=== PATIENT | male | born 1970 | race Caucasian/White ===

== ENCOUNTER 2019-08-13 09:15 | Emergency (ER) | payer BC ==
[2019-08-13 09:26] VITALS: BP 154/87
--- NOTE | 2019-08-13 09:54 | UC ---
Cardiac HPI - HPI Summary HPI Summary: 49-year-old male comes in with a chief complaint of epigastric pain chest pain and left shoulder pain. Pain woke him up at about 11 PM last evening. He's had the pain ever since. He did feel sweaty at one time. No complaint of any shortness of breath. Describes it as a burning pain. At its worse it's a 10 out of 10. Right now is about an 8 out of 10. He had a similar episode about a month ago that got better when he sat up and took antacid medicines. This time he did sit up and he took an antacid medicine but is not helping with the symptoms. Patient does have high blood pressure. Virtually anything makes the pain worse. - History of Current Complaint Chief Complaint: UCGI Stated Complaint: ABDOMINAL PAIN HEARTBURN Time Seen by Provider: 08/13/19 09:35 Pain Intensity: 8 - Allergy/Home Medications Allergies/Adverse Reactions: Allergies Allergy/AdvReac Type Severity Reaction Status Date / Time No Known Allergies Allergy Verified 08/13/19 09:34 Home Medications: Home Medications NK [No Home Medications Reported] 08/13/19 [History Confirmed 08/13/19] PMH/Surg Hx/FS Hx/Imm Hx Previously Healthy: Yes Cardiovascular History: Hypertension - Surgical History Surgical History: None - Family History Known Family History: Positive: Non-Contributory - Social History Alcohol Use: None Substance Use Type: None Smoking Status (MU): Current Some Day Smoker Review of Systems All Other Systems Reviewed And Are Negative: Yes Constitutional: Positive: Other - see hpi Skin: Positive: Negative Eyes: Positive: Negative ENT: Positive: Negative Respiratory: Positive: Negative Cardiovascular: Positive: Chest Pain Gastrointestinal: Positive: Abdominal Pain Motor: Positive: Negative Neurovascular: Positive: Negative Musculoskeletal: Positive: Negative Neurological: Positive: Negative Psychological: Positive: Negative Is Patient Immunocompromised?: No Physical Exam Triage Information Reviewed: Yes Appearance: Well-Appearing, No Pain Distress, Well-Nourished Vital Signs: Initial Vital Signs Temp 97.0 F 08/13/19 09:23 Pulse 64 08/13/19 09:23 Resp 20 08/13/19 09:23 BP 154/87 08/13/19 09:23 Pulse Ox 98 08/13/19 09:23 Vital Signs Reviewed: Yes Eye Exam: Normal Eyes: Positive: Conjunctiva Clear Neck: Positive: Supple Respiratory: Positive: Lungs clear, Normal breath sounds, No respiratory distress Cardiovascular: Positive: RRR Abdomen Description: Positive: Other: - Patient's mildly tender to palpation in the epigastrium. Bowel Sounds: Positive: Present Musculoskeletal: Positive: Strength Intact, ROM Intact, No Edema - No calf tenderness. Neurological: Positive: Alert, Muscle Tone Normal Psychological: Positive: Age Appropriate Behavior Skin Exam: Normal Diagnostics - EKG Cardiac Rate: Bradycardia - at 0929 Cardiac Rhythm: Sinus: Normal Ectopy: None ST Segment: Other EKG Comparison: Other - Sinus bradycardia 57 beats per minute minutes, no ectopy , there is slight ST depression in V4 and V5. No old EKGs to compare. - Assessment/Plan Course Of Treatment: I discussed the patient's symptoms and the EKG with the patient. There is some ST depression in V4 and V5. I recommended further evaluation in the emergency department. Patient prefers to go by POV. - Clinical Impression Provider Diagnosis: Chest pain, Epigastric abdominal pain Discharge ED - Sign-Out/Discharge Documenting (check all that apply): Patient Departure All imaging exams completed and their final reports reviewed: No Studies - Discharge Plan Condition: Stable Disposition: HOME-RECOMMEND TO ED Patient Education Materials: Chest Pain (ED), Epigastric Pain (ED) Referrals: Zechariah Vega MD [Primary Care Provider] - Additional Instructions: GO DIRECTLY TO THE EMERGENCY DEPARTMENT FOR FURTHER EVALUATION. - Billing Disposition and Condition Condition: STABLE Disposition: Home-Recommend to ED
== END 2019-08-13 09:58 | disposition home health service (06) ==
LOC: UCEAST 09:15
DX: R07.9 Chest pain, unspecified (principal); R10.13 Epigastric pain; R00.1 Bradycardia, unspecified; I10 Essential (primary) hypertension; F17.200 Nicotine dependence, unspecified, uncomplicated
CPT/HCPCS: 93005; 99202; G0463

== ENCOUNTER 2019-08-13 10:16 | Inpatient (IN) | payer BC ==
[2019-08-13 11:00] LABS: ABS Basophils 0.1 10^3/ul (0-0.2); ABS Lymphocytes 1.1 10^3/ul (1.0-4.8); ABS Monocytes 0.8 10^3/ul (0-0.8); ABS Neutrophils 11.9 10^3/ul (1.5-7.7); Eosinophil % 0.3 %; Hematocrit 41 % (42-52); Hemoglobin 13.7 g/dL (14.0-18.0); Lymphocyte % 7.7 %; Mean Corpuscular HGB Conc 33 g/dL (31-36); Mean Corpuscular Hemoglobin 28 pg (27-31); Mean Corpuscular Volume 82 fL (80-94); Mean Platelet Volume 7.3 fL (7.4-10.4); Platelet Count 282 10^3/uL (150-450); Red Blood Count 4.98 10^6 /uL (4.18-5.48); Red Cell Distribution Width 15 % (10-15); White Blood Count 13.9 10^3/uL (3.5-10.8)
[2019-08-13 11:11] LABS: INR 1.24 (0.82-1.09)
[2019-08-13 11:16] LABS: ALT 16 U/L (7-52); AST 14 U/L (13-39); Albumin 4.8 g/dL (3.2-5.2); Albumin/Globulin Ratio 1.7 (1-3); Alkaline Phosphatase 109 U/L (34-104); Anion Gap 8 mmol/L (2-11); BUN/Creatinine Ratio 8.2 (8-20); Blood Urea Nitrogen 8 mg/dL (6-24); CO2 Carbon Dioxide 27 mmol/L (22-32); Calcium 9.6 mg/dL (8.6-10.3); Chloride 104 mmol/L (101-111); EGFR African American 98.7 (>60); EGFR Non-African American 81.6 (>60); Globulin 2.8 g/dL (2-4); Glucose 105 mg/dL (70-100); Potassium 3.9 mmol/L (3.5-5.0); Sodium 139 mmol/L (135-145); Total Protein 7.6 g/dL (6.4-8.9)
[2019-08-13 11:20] LABS: Troponin I 0.07 ng/mL (<0.03)
[2019-08-13] MEDS ORDERED: NS 0.9% 1000 ML** 1,000 ML IV ONE (11:21)
[2019-08-13] MEDS ORDERED: Lidocaine 2% VISCOUS* 15 ML UDC PO ONE (11:23)
[2019-08-13] MEDS ORDERED: Al Hydrox/Mg Hydrox/Simet LIQ* 30 ML UDC PO ONE ×2 (11:23→17:04)
--- NOTE | 2019-08-13 11:25 | ED ---
HPI Chest Pain - HPI Summary HPI Summary: Patient is a 49 y/o M presenting to the ED for a chief complaint of diffuse non- radiating chest pain that began around 23:00 on 08/12/19. Patient describes that his symptoms continued into work on 08/13/19. He also notes nausea and vomiting that is described as bile. The chest pain is described as a burning sensation. He believes he may have heartburn. Patient denies abdominal pain, diarrhea, shortness of breath, chest pain with exertion, fever, cold symptoms, hematochezia, bilateral LE pain or edema, or groin pain. Any recent illness is denied. One month ago, patient had similar symptoms that began while sleeping. Any PMHx of DM, GERD, cardiac problems, or ulcers is denied. He does admit a history of HTN for which he does not take medications. PSHx of cardiac stent placement is denied. Patient admits tobacco use, but denies alcohol use. He denies taking any Motrin, aspirin, or antacid. Allergy to Advil noted. - History of Current Complaint Chief Complaint: EDChestPainROMI Hx Obtained From: Patient Onset/Duration: Atraumatic, Still Present Timing: Constant Initial Severity: Severe Current Severity: Severe Pain Intensity: 8 Pain Scale Used: 0-10 Numeric Chest Pain Location: Diffuse Chest Pain Radiates: No Character: Burning Aggravating Factor(s): Nothing Alleviating Factor(s): Nothing Associated Signs and Symptoms: Positive: Chest Pain, Nausea, Vomiting. Negative : Shortness of Breath, Fever, Abdominal Pain, Edema - Bilateral LE - Allergy/Home Medications Allergies/Adverse Reactions: Allergies Allergy/AdvReac Type Severity Reaction Status Date / Time ibuprofen [From Advil] Allergy Itching Verified 08/13/19 10:32 naproxen [From Aleve] Allergy Itching Verified 08/13/19 10:32 PMH/Surg Hx/FS Hx/Imm Hx Previously Healthy: Yes Endocrine/Hematology History: Denies: Hx Diabetes Cardiovascular History: Reports: Hx Hypertension Sensory History: Denies: Hx Legally Blind, Hx Deafness Opthamlomology History: Denies: Hx Legally Blind EENT History: Denies: Hx Deafness - Surgical History Surgical History: None Surgery Procedure, Year, and Place: None Infectious Disease History: No Infectious Disease History: Denies: Traveled Outside the [place] in Last 30 Days - Family History Known Family History: Negative: Diabetes - Social History Occupation: Employed Full-time Lives: With Family Alcohol Use: None Hx Substance Use: No Substance Use Type: Reports: None Hx Tobacco Use: Yes Smoking Status (MU): Current Some Day Smoker Review of Systems Negative: Fever Positive: Chest Pain - Diffuse Negative: Shortness Of Breath Positive: Vomiting, Nausea. Negative: Abdominal Pain, Diarrhea, Other - Negative hematochezia Negative: pain - Groin Negative: Myalgia - Bilateral LE, Edema - Bilateral LE All Other Systems Reviewed And Are Negative: Yes Physical Exam - Summary Physical Exam Summary: Constitutional: Well-developed, Well-nourished, Alert. (-) Distressed Skin: Warm, Dry HENT: Normocephalic; Atraumatic Eyes: Conjunctiva normal Neck: Musculoskeletal ROM normal neck. (-) JVD, (-) Stridor, (-) Tracheal deviation Cardio: Rhythm regular, rate normal, Heart sounds normal; Intact distal pulses; The pedal pulses are 2+ and symmetric. Radial pulses are 2+ and symmetric. (-) Murmur Pulmonary/Chest wall: Effort normal. (-) Respiratory distress, (-) Wheezes, (-) Rales Abd: Soft, (-) Distension, (-) Guarding, (-) Rebound. Epigastric tenderness. Musculoskeletal: (-) Edema Lymph: (-) Cervical adenopathy Neuro: Alert, Oriented x3 Psych: Mood and affect Normal Triage Information Reviewed: Yes Vital Signs On Initial Exam: Initial Vitals Temp Pulse Resp BP Pulse Ox 97.5 F 69 20 169/102 98 08/13/19 10:29 08/13/19 10:29 08/13/19 10:29 08/13/19 10:29 08/13/19 10:29 Vital Signs Reviewed: Yes Procedures - Sedation Patient Received Moderate/Deep Sedation with Procedure: No Diagnostics - Vital Signs Vital Signs Temp Pulse Resp BP Pulse Ox 08/13/19 10:29 97.5 F 69 20 169/102 98 - Laboratory Lab Results: Lab Results 08/13/19 08/13/19 08/13/19 Range/Units 10:40 10:40 10:40 WBC 13.9 H (3.5-10.8) 10^3/uL RBC 4.98 (4.18-5.48) 10^6 /uL Hgb 13.7 L (14.0-18.0) g/dL Hct 41 L (42-52) % MCV 82 (80-94) fL MCH 28 (27-31) pg MCHC 33 (31-36) g/dL RDW 15 (10-15) % Plt Count 282 (150-450) 10^3/uL MPV 7.3 L (7.4-10.4) fL Neut % (Auto) 85.9 % Lymph % (Auto) 7.7 % Sac % (Auto) 5.6 % Eos % (Auto) 0.3 % Baso % (Auto) 0.5 % Absolute Neuts (auto) 11.9 H (1.5-7.7) 10^3/ul Absolute Lymphs (auto) 1.1 (1.0-4.8) 10^3/ul Absolute Monos (auto) 0.8 (0-0.8) 10^3/ul Absolute Eos (auto) 0.0 (0-0.6) 10^3/ul Absolute Basos (auto) 0.1 (0-0.2) 10^3/ul Absolute Nucleated RBC 0.0 10^3/ul Nucleated RBC % 0.0 INR (Anticoag Therapy) 1.24 H (0.82-1.09) Sodium 139 (135-145) mmol/L Potassium 3.9 (3.5-5.0) mmol/L Chloride 104 (101-111) mmol/L Carbon Dioxide 27 (22-32) mmol/L Anion Gap 8 (2-11) mmol/L BUN 8 (6-24) mg/dL Creatinine 0.97 (0.67-1.17) mg/dL Est GFR ( Amer) 98.7 (>60) Est GFR (Non-Af Amer) 81.6 (>60) BUN/Creatinine Ratio 8.2 (8-20) Glucose 105 H (70-100) mg/dL Calcium 9.6 (8.6-10.3) mg/dL Total Bilirubin 0.30 (0.2-1.0) mg/dL AST 14 (13-39) U/L ALT 16 (7-52) U/L Alkaline Phosphatase 109 H (34-104) U/L Troponin I 0.07 H* (<0.03) ng/mL Total Protein 7.6 (6.4-8.9) g/dL Albumin 4.8 (3.2-5.2) g/dL Globulin 2.8 (2-4) g/dL Albumin/Globulin Ratio 1.7 (1-3) Result Diagrams: 08/13/19 10:40 08/13/19 10:40 Lab Statement: Any lab studies that have been ordered have been reviewed, and results considered in the medical decision making process. - Radiology Chest X-ray Radiology Interpretation Completed By: Radiologist Summary of Radiographic Findings: Chest X-ray IMPRESSION: No acute cardiopulmonary process by radiograph. Reviewed by Dr. Buchanan. - EKG 10:18 Cardiac Rate: NL - 70 BPM EKG Rhythm: Sinus Rhythm ST Segment: Normal Ectopy: None Summary of EKG Findings: EKG at 10:18 shows normal sinus rhythm with 70 BPM, no ischemic changes. Dr. Buchanan has reviewed and interpreted this EKG. Chest Pain Course/Dx - Course Course Of Treatment: Patient is a 49 y/o M presenting to the ED for a chief complaint of diffuse non-radiating chest pain that began around 23:00 on . Patient describes that his symptoms continued into work on 08/13/19. He also notes nausea and vomiting that is described as bile. The chest pain is described as a burning sensation. He believes he may have heartburn. Patient denies abdominal pain, diarrhea, shortness of breath, chest pain with exertion, fever, cold symptoms, hematochezia, bilateral LE pain or edema, or groin pain. Any recent illness is denied. One month ago, patient had similar symptoms that began while sleeping. Any PMHx of DM, GERD, cardiac problems, or ulcers is denied. He does admit a history of HTN for which he does not take medications. PSHx of cardiac stent placement is denied. Patient admits tobacco use, but denies alcohol use. He denies taking any Motrin, aspirin, or antacid. Allergy to Advil noted. On exam, soft, non-distended abdomen, epigastric tenderness. In the ED course, patient was given Maalox 30 ml PO, lidocaine 15 ml PO, and IV fluids. Laboratory abnormal findings: WBC 13.9, Hgb 13.7, Hct 41, MPV 7.3, absolute neuts 11.9, INR 1.24, glucose 105, alkaline phosphatase 109, troponin I 0.07. EKG at 10:18 shows normal sinus rhythm with 70 BPM, no ischemic changes. Chest X-ray IMPRESSION: No acute cardiopulmonary process by radiograph. At 11:34, I discussed with Dr. Annika Francis for who agrees to admit the patient to [facility] [place]. I also consulted with Dr. Holden Ho who recommended admission. Patient will be admitted to [facility] [place] with a diagnosis of chest pain and elevated troponin. - Diagnoses Provider Diagnoses: Chest pain, Elevated troponin - Provider Notifications Discussed Care Of Patient With: Annika Francis - At 11:34, I discussed with Dr. Annika Francis for who agrees to admit the patient to [facility] [place]. I also consulted with Dr. Holden Ho who recommended admission. Time Discussed With Above Provider: 11:34 Instructed by Provider To: Admit As Inpatient Discharge ED - Sign-Out/Discharge Documenting (check all that apply): Patient Departure - Admit - Discharge Plan Condition: Stable Disposition: ADMITTED TO [facility] - Billing Disposition and Condition Condition: STABLE Disposition: Admitted to [facility] - Attestation Statements Document Initiated by Allyibe: Yes Documenting Scribe: Lorraine Alvarez Provider For Whom Scribe is Documenting (Include Credential): Harish Buchanan DO [facility] Attestation: Lorraine Bowers scribed for Harish Buchanan DO on 08/13/19 at 1417. Scribe Documentation Reviewed: Yes Provider Attestation: The documentation as recorded by the Lorraine lira accurately reflects the service I personally performed and the decisions made by me, Harish Buchanan DO Status of [facility] Document: Viewed
[2019-08-13] MEDS ORDERED: Aspirin 81 mg CHEW TAB* 81 MG TAB.CHEW PO ONE (11:31)
[2019-08-13] MEDS ORDERED: Nitroglycerin TAB 0.4 MG* 0.4 MG TAB SL ONE (11:32)
[2019-08-13] MEDS ORDERED: Morphine INJ* 2 MG/ML 1 ML SYRINGE (TWO MG - NEW SYRINGE VERSION) IV PRN (12:29)
[2019-08-13] MEDS ORDERED: Heparin DRIP 25,000 UNITS(*) 25,000 UNITS/500 ML BAG IV SCH (12:30)
[2019-08-13] MEDS ORDERED: Metoprolol Tartrate IV* 1 MG/ML 5 ML VIAL IV ONE ×2 (12:30→16:58)
[2019-08-13] MEDS ORDERED: Acetaminophen TAB* 325 MG PO PRN (12:32)
[2019-08-13] MEDS ORDERED: amLODIPine TAB* 5 MG PO ONE ×2 (12:41→16:57)
[2019-08-13] MEDS ORDERED: Nitro 2% OINT* (Nitroglycerin) 1 INCH/PAK PAK TOPICAL ONE (12:41)
[2019-08-13] MEDS ORDERED: NS 0.9% 1000 ML** 1,000 ML IV SCH (12:45)
[2019-08-13 13:04] LABS: C Reactive Protein 2.36 mg/L (<8.01)
[2019-08-13] MEDS ORDERED: Perflutren Lipid Microsphere* 3 ML VIAL ONE (13:13)
[2019-08-13 13:15] LABS: Cholesterol 135 mg/dL; Creatine Kinase 110 U/L (10-223); HDL Cholesterol 46.9 mg/dL; LDL Cholesterol 69 mg/dL; Triglycerides 95 mg/dL
[2019-08-13 13:20] LABS: CKMB ng/mL 2.3 ng/mL (0.6-6.3)
[2019-08-13 13:57] LABS: Erythrocyte Sed Rate 3 mm/Hr (0-19)
--- NOTE | 2019-08-13 13:59 | ECHO ---
*[facility]* [place] [address] Fax #: [phone] Transthoracic Echocardiogram Patient: Nguyễn Gupta : 1970 Study Date: 08/13/2019 Age: 49 Gender: M HR: 51 bpm Height: 71 in /180.3 cm BSA: 1.94 m^2 Weight: 164.7 lb /74.8 kg BMI: 23 kg/m^2 *Metal Reed Tuner: Lorraine Case [facility] *Referring Physician: * Holden Ho MD *Reading Physician: * Holden Ho MD Indications: Chest Pain, unspecified. History: Risk factors: Current tobacco use. Hypertension. Conclusions Summary: - Left ventricle: Systolic function is normal. The estimated ejection fraction is 60-65%. - Right ventricle: The cavity size is normal. Wall thickness is mildly increased. - Mitral valve: There is trace regurgitation. Study data: Transthoracic echocardiogram. Procedure: Transthoracic echocardiography was performed. Image quality was suboptimal. Intravenous Definity , 2 mlswas administered. Complete 2D, spectral Doppler, and color flow Doppler. Location: Emergency department. Patient status: Inpatient. Patient room number: 9. No prior study is available for comparison. Rhythm: Bradycardia. Findings Left ventricle: The cavity size is trivially reduced. Wall thickness is normal. Systolic function is normal. The estimated ejection fraction is 60-65%. Wall motion is normal; there are no regional wall motion abnormalities. Left ventricular diastolic function parameters are normal. Right ventricle: The cavity size is normal. Wall thickness is mildly increased. Systolic function is normal. Left atrium: The atrium is normal in size. Right atrium: The atrium is normal in size. Mitral valve: The leaflets are normal thickness. There is no evidence of stenosis. There is trace regurgitation. Aortic valve: The valve is trileaflet. The leaflets are normal thickness. There is no evidence of stenosis. There is no significant regurgitation. Tricuspid valve: The leaflets are normal thickness. There is no evidence of stenosis. Pulmonic valve: Not well visualized. There is no significant regurgitation. Aorta: The aortic root appears normal. The aortic arch appears normal. Pericardium: There is no significant pericardial effusion. Pulmonary arteries: Systolic pressure can not be accurately estimated. Systemic veins: Inferior vena cava: The vessel is normal in size. There is (>= 50%) respiratory change in the IVC dimension. Measurements Left ventricle Value Ref Aortic valve Value Ref BO, LAX (L) 3.7 cm 4.2 - 5.8 Rosi diam, ED 2.0 cm ---- ESD, LAX 2.8 cm 2.5 - 4.0 Peak v, S 1.49 m/sec ---- FS, LAX 25 % 25 - 43 VTI, S 30.0 cm ---- PW, ED, LAX 1.0 cm 0.6 - 1.0 Mean grad, S 4.0 mm Hg ---- E', lat rosi, TDI 16.6 cm/sec >=10.0 Peak grad, S 9.0 mm Hg - --- E/e', lat rosi, 5 TDI Mitral valve Value Ref E', med rosi, TDI 10.7 cm/sec >=7.0 Peak E 0.81 m/sec - --- E/e', med rosi, 8 Peak A 0.45 m/sec ---- TDI Decel time 187 ms ---- E', avg, TDI 13.7 cm/sec Peak grad, D 2.6 mm Hg ---- E/e', avg, TDI 6 <=14 Peak E/A ratio 1.8 - --- LVOT Value Ref Pulmonic valve Value Ref Peak dominic, S 1.43 m/sec Peak v, S 0.51 m/sec ---- Peak grad, S 8 mm Hg Peak grad, S 1.0 mm Hg ---- Mean grad, S 3 mm Hg Aortic root Value Ref Ventricular septum Value Ref Root diam 3.0 cm <4.1 IVS, ED 1.0 cm 0.6 - 1.0 Root max diam, ED 3.0 cm <4.1 Right ventricle Value Ref Aortic arch Value Ref AW thickness, ED (H) 0.8 cm 0.1 - 0.5 Arch diam 2.8 cm ---- BO, LAX 2.7 cm BO minor ax, A4C 2.7 cm 1.9 - 3.5 Decending aorta Value Ref mid Martita peak dominic 1.22 m/sec ---- Left atrium Value Ref Inferior vena cava Value Ref AP dim, ES (L) 2.30 cm 3.00 - Diam 2.1 cm ---- 4.00 ML dim, A4C 3.4 cm Pulmonary veins Value Ref SI dim, A4C 5.2 cm Peak v, S 0.7 m/sec ---- Vol/bsa, ES, 1-p 22 ml/m^2 12 - 37 Peak v, D 0.52 m/sec ---- A4C Peak S/D ratio 1.3 ---- A rev duration 119 ms ---- Right atrium Value Ref SI dim, ES 4.2 cm 3.4 - 5.3 ML dim, ES, A4C 3.4 cm 2.6 - 4.4 Estimated RAP 8 mm Hg Legend: (L) and (H) ana paula values outside specified reference range. Prepared and electronically signed by Holden Ho MD 08/13/2019 13:58
[2019-08-13] MEDS: Heparin VIAL(*) 5000 UNITS/ML VIAL (FIVE THOUSAND) IV SCH ×2 (14:00→20:46)
[2019-08-13 14:24] LABS: Troponin I 0.09 ng/mL (<0.03)
--- NOTE | 2019-08-13 14:25 | HP ---
CC: Dr. Vega; Dr. Ho * HISTORY AND PHYSICAL: DATE OF ADMISSION: 08/13/19 PRIMARY CARE PROVIDER: Dr. Vega. CHIEF COMPLAINT: Chest pain. HISTORY OF PRESENT ILLNESS: Nguyễn Gupta is a 49-year-old male with no significant past medical history, who presented to the hospital complaining of indigestion. The patient stated that he had 1 episode of indigestion a month ago. At that point, his gave him Mylanta and it helped. He also at that point threw up and was covered in sweat. For the past month, he has been doing rather okay. 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 He has not had any more indigestion until today, actually in the middle of the night when he woke up with substernal burning. Currently, the discomfort is at 8/10 intensity. He denies any sweats or shortness of breath, but he complains of nausea. He also feels that the symptoms are worse when he is lying flat, but otherwise the pain is not pleuritic. He still continues have a problem. His troponin was 0.07 and he is going to be admitted with a diagnosis of likely unstable angina. PAST MEDICAL HISTORY: None. PAST SURGICAL HISTORY: None. MEDICATIONS: Medications at home, none. ALLERGIES: IBUPROFEN and NAPROXEN. FAMILY HISTORY: Positive for mother who in her 60s of lung cancer and father unknown. SOCIAL HISTORY: The patient has history of smoking a pack and half a day for approximately 10 or 15 years, then the remaining 15 years he had been smoking 10 cigarettes a day. He started smoking when he was in his early teens and he continues to do so up to 10 cigarettes a day. He denies any alcohol or drug use. He is a lead software tester at [employer] and his , Annmarie, is his surrogate. REVIEW OF SYSTEMS: Please see history of present illness. All the remaining 12 systems were reviewed with the patient and were otherwise negative. PHYSICAL EXAMINATION GENERAL: The patient is is a very pleasant 49-year-old male who is in no acute distress. Alert, awake and oriented x3. VITAL SIGNS: Blood pressure 169/102, heart rate of 69 and regular, respiratory rate 20, oxygen saturation 98% on room air, temperature 97.5. HEENT: Head is atraumatic, normocephalic. Eyes: Pupils are equal and reactive to light and accommodation. Oropharynx clear. Mucosa moist. NECK: Supple. No JVD. No bruits bilaterally. RESPIRATORY: Clear to auscultation bilaterally. CARDIOVASCULAR: Regular rate and rhythm. No murmur. ABDOMEN: Soft, minimally tender in right upper quadrant with no rebound and no guarding. Bowel sounds are present in all 4 quadrants. EXTREMITIES: There is no edema. Pulses are +2 bilaterally. There is no clubbing or cyanosis. NEUROLOGIC: Speech clear. Cranial nerves II through XII grossly intact. Motor strength is 5/5 bilaterally. SKIN: No ecchymotic areas or rashes noted. DIAGNOSTIC STUDIES/LAB DATA: Sodium 139, potassium 3.9, chloride 104, carbon dioxide 27, BUN 8, creatinine of 0.97. Liver function shows alkaline phosphatase of 109. Troponin of 0.07. CBC: White blood cell count of 13.9, hemoglobin of 13.7, hematocrit of 41, and platelets 282. Portal chest x-ray, impression: "No acute cardiopulmonary process by radiograph." The patient's EKG showed sinus rhythm with heart rate of 70 beats per minute with minimal ST depressions in lateral leads V4 to V6. ASSESSMENT AND PLAN: 1. At this point, the patient has positive troponin and chest pain, likely due to unstable angina. The patient's troponins are going to be continued to be checked. He is going to be admitted to telemetry monitored bed. We will place the patient on heparin drip and daily aspirin. His heart rate currently is actually in the 50s and he will not be tolerating beta-blockers at this point. I discussed it with Dr. Ho, who will see the patient in consultation. At this point, the patient is going to be placed on Norvasc and nitro paste due to his elevated blood pressures. A transthoracic echocardiogram is going to be obtained. We also added on C- reactive protein and erythrocyte sedimentation rate to evaluate for possibility of pericarditis. 2. To evaluate the patient for dyslipidemia, lipid profile is going to be obtained in the morning. 3. For DVT prophylaxis, the patient is placed already on heparin drip as mentioned above. 4. The patient's code status is full. His surrogate is his . TIME SPENT: Approximately 55 minutes was spent on admission of this patient. More than half of that time was spent face to face with the patient during the interview and physical exam. [id number]/[facility] #: [id number] ALFA
[2019-08-13] MEDS ORDERED: Nicotine Lozenge* mini 4 MG LOZNG.MINI MT PRN (14:29)
--- NOTE | 2019-08-13 14:42 | CONS ---
CC: Dr. Vega; Dr. Holden Ho CARDIOLOGY CONSULTATION: DATE OF CONSULT: 08/13/19 CONSULTING PHYSICIAN: Dr. Francis. REASON FOR EVALUATION: Chest pain, elevated troponin. HISTORY OF PRESENT ILLNESS: This is a very pleasant 49-year-old gentleman who is accompanied by his . He has a history of hypertension and tobacco use and COPD. 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 He said that about a month ago he had about 45 minutes of chest discomfort associated with nausea and vomiting, which resolved. He was able to work last month without problem. Last night at about 11:30, he developed 8/10 chest pain, which consists of sharp pressure in his sternal and left sternal area. He said it seemed like it was worse lying flat, somewhat better with sitting up. The pain persisted on and off over the course of the night. He got up and went to work at about 4:30 in the morning. He vomited once and had a sour taste in his mouth. The pain continued despite being at work. It did not seem to change with working, but because of his ongoing pain, his advised him to go to the emergency room. In the emergency room, he had a normal EKG, but was noted to have an elevated troponin of 0.07. He does report some mild right upper quadrant tenderness and that the pain was worse lying flat last night and improved somewhat with changing his position here. He denies associated shortness of breath. He denies any fevers, chills, sweats , respiratory infections, or GI upset. PAST MEDICAL HISTORY: Hypertension; tobacco use 1-1/2 pack per year for many years, decreased to half a pack a day over the last year and a half; COPD. MEDICATIONS: He denies any medications at this point in time. ALLERGIES: Include IBUPROFEN with hives. FAMILY HISTORY: Includes a mother of cancer at 67 and the father's history is unknown, 3 sisters have no coronary artery disease. SOCIAL HISTORY: Without caffeine, he drinks 4 to 12 emily a day. He denies coffee use. Denies alcohol use. REVIEW OF SYSTEMS: Review of systems x10 was negative except as above. PHYSICAL EXAM: He is a well-developed, well-nourished gentleman, in no apparent distress. Heart rate 50, blood pressure 168/96. No significant JVD. Carotids 2+ without bruits. No cervical adenopathy. No thyromegaly. Extraocular muscles intact. Cardiac Exam: S1, S2 without murmurs, gallops, or rubs. Chest was clear with decreased breath sounds, prolonged expiratory phase. No CVAT. Abdomen: Bowel sounds present. Mild tenderness in the right upper quadrant with palpation. Femoral pulses intact without bruits. Distal pulses intact. No edema. Motor strength 5/5 bilaterally. Deep tendon reflexes 2/4 in the upper extremities, 3/4 in the lower extremities. A& O x 3 DIAGNOSTIC STUDIES/LAB DATA: Electrolytes revealed sodium of 139, potassium of 3.9, BUN of 8, creatinine of 0.97, glucose of 105. Troponin of 0.07. Lipase of 33. Total bili of 0.3. Chest x-ray revealed no acute cardiopulmonary issues and his EKG revealed sinus rhythm, possible left atrial enlargement, poor baseline, cannot rule out minor inferolateral ST depressions, rSr prime in V1 and poor R-wave progression that was from 10 o'clock. He had an EKG from 04/26/19 which was similar with a minor ST straightening in the inferolateral leads. IMPRESSION AND PLAN: My impression is that Mr. Gupta has chest pain of unclear etiology. Despite almost 12 hours of chest pain, his troponin was minimally elevated at 0.07 and there were no diagnostic EKG changes. The pattern of his pain is somewhat atypical and he has right upper quadrant tenderness raising the possibility of nonischemic etiologies including myopericarditis or cholecystitis. However, given his risk factors and his elevated troponin and minimal EKG changes, we will treat as though this is acute coronary syndrome and I discussed this with the patient and Dr. Francis. He is to start IV heparin and would attempt blood pressure control with amlodipine and nitrates as tolerated. We will repeat his EKG and troponin. We will consider referral to the cathode ray tube salvage processor if he continues to have chest pain and unresponsive to interventions without an etiology and elevated troponins. He is to have an echo to evaluate for wall motion abnormalities. I would suggest adding a sed rate and CRP given his elevated white count raising possibility of inflammatory process. I would consider an ultrasound of his gallbladder given the right upper quadrant tenderness. I strongly advised discontinuation of tobacco use. I also suggested he moderate his caffeine use. Further recommendation will depend on his clinical course. Would consider obtaining a lipid profile. [id number]/[facility] #: [id number] ALFA
[2019-08-13 16:54] LABS: Troponin I 0.08 ng/mL (<0.03)
[2019-08-13] MEDS ORDERED: Metoprolol Tartrate TAB* 25 MG PO SCH (17:00)
[2019-08-13] MEDS: Pantoprazole TAB * 40 MG TAB PO SCH (17:44)
[2019-08-13] MEDS: Metoprolol Tartrate TAB* 25 MG PO SCH (20:02)
[2019-08-14] MEDS: Heparin VIAL(*) 5000 UNITS/ML VIAL (FIVE THOUSAND) IV SCH (02:33)
[2019-08-14 04:32] LABS: ABS Basophils 0.1 10^3/ul (0-0.2); ABS Eosinophils 0.1 10^3/ul (0-0.6); ABS Lymphocytes 1.7 10^3/ul (1.0-4.8); ABS Monocytes 1.1 10^3/ul (0-0.8); ABS Neutrophils 9.1 10^3/ul (1.5-7.7); Eosinophil % 0.9 %; Hematocrit 38 % (42-52); Hemoglobin 12.8 g/dL (14.0-18.0); Lymphocyte % 14.2 %; Mean Corpuscular HGB Conc 33 g/dL (31-36); Mean Corpuscular Hemoglobin 27 pg (27-31); Mean Corpuscular Volume 82 fL (80-94); Mean Platelet Volume 7.4 fL (7.4-10.4); Nucleated Red Blood Cells % 0.1; Platelet Count 238 10^3/uL (150-450); Red Blood Count 4.67 10^6 /uL (4.18-5.48); Red Cell Distribution Width 15 % (10-15); White Blood Count 12.2 10^3/uL (3.5-10.8)
[2019-08-14 04:54] LABS: Anion Gap 8 mmol/L (2-11); BUN/Creatinine Ratio 6.4 (8-20); Blood Urea Nitrogen 6 mg/dL (6-24); CO2 Carbon Dioxide 24 mmol/L (22-32); Calcium 8.7 mg/dL (8.6-10.3); Chloride 104 mmol/L (101-111); Cholesterol 111 mg/dL; EGFR African American 102.4 (>60); EGFR Non-African American 84.6 (>60); Glucose 118 mg/dL (70-100); HDL Cholesterol 39.6 mg/dL; LDL Cholesterol 58 mg/dL; Potassium 3.8 mmol/L (3.5-5.0); Sodium 136 mmol/L (135-145); Triglycerides 68 mg/dL
[2019-08-14] MEDS ORDERED: Aspirin 81 mg CHEW TAB* 81 MG TAB.CHEW PO ONE (07:43)
[2019-08-14] MEDS ORDERED: Aspirin 81 mg CHEW TAB* 81 MG TAB.CHEW ONE (07:44)
[2019-08-14] MEDS: Metoprolol Tartrate TAB* 25 MG PO SCH ×2 (07:52→20:08)
[2019-08-14] MEDS: amLODIPine TAB* 5 MG PO SCH (07:52)
[2019-08-14] MEDS: Pantoprazole TAB * 40 MG TAB PO SCH (07:53)
[2019-08-14] MEDS ORDERED: Iohexol 350 (CONTRAST) 200 ML MDV IV ONE (08:17)
[2019-08-14] MEDS ORDERED: Lidocaine 1% INJ* 10 MG/ML 30 ML SDV ONE (08:17)
[2019-08-14] MEDS ORDERED: Heparin 2 UNITS/ML IVPREMIX* 2,000 ML IV ONE (08:17)
[2019-08-14] MEDS ORDERED: VERAPAMIL 2.5 MG/ML 2 ML VIAL ** 5 mg/2 ml ONE (08:18)
[2019-08-14] MEDS ORDERED: fentaNYL* 50 MCG/ML 2 ML VIAL (100 MCG VIAL) ONE (08:18)
[2019-08-14] MEDS ORDERED: nitroGLYCERIN DRIP* 25,000 MCG/250 ML BTL ONE (08:18)
[2019-08-14] MEDS ORDERED: Heparin(*) 1000 UNIT/ML 10 ML VIAL CATH LAB IV ONE (08:18)
[2019-08-14] MEDS ORDERED: Midazolam* 1 MG/ML 5 ML VIAL (5 MG) ONE (08:18)
[2019-08-14] MEDS ORDERED: NS 0.9% 1000 ML** 1,000 ML IV SCH ×2 (09:30→12:15)
[2019-08-14] MEDS ORDERED: Piperacillin/Tazobac ADVAN(*) 3.375 GM in NS 0.9% 100 ML* 100 ML IVPB ONE (09:58)
[2019-08-14] MEDS ORDERED: Zosyn per Pharmacy* NOTE FOLLOW UP SCH (10:00)
[2019-08-14 10:16] LABS: ALT 11 U/L (7-52); AST 12 U/L (13-39); Albumin/Globulin Ratio 1.7 (1-3); Alkaline Phosphatase 97 U/L (34-104); Globulin 2.3 g/dL (2-4); Indirect Bilirubin 0.5 mg/dL (0.3-1.0); Total Protein 6.3 g/dL (6.4-8.9)
[2019-08-14 10:20] LABS: Troponin I 0.14 ng/mL (<0.03)
[2019-08-14] MEDS ORDERED: Potassium Chloride* LIQUID 20 MEQ/15 ML UDC PO ONE (10:34)
--- NOTE | 2019-08-14 11:14 | CATH ---
CC: Dr. Zechariah Vega, [facility]; Dr. Holden Ho, [facility]. CARDIAC CATHETERIZATION REPORT: DATE OF PROCEDURE: 08/14/19 - ROOM #433 INDICATION FOR THE PROCEDURE: Asked by Dr. Holden Ho to perform cardiac catheterization in light of the patient presenting with chest discomfort symptoms and abnormal troponins raising the question of acute coronary syndrome , rule out the presence of significant obstructive coronary artery disease. PROCEDURE: Coronary arteriography, left heart catheterization (of note, the patient already had an echocardiogram performed for LV function during this hospitalization). CONSENT: The patient was interviewed and examined on the floor of the hospital where the risks and benefits were explained. He understood them and wished to proceed. APPROACH UTILIZED: The right radial artery size was assessed by ultrasound in the holding area and found to be acceptable for this, and as such, this was the approach utilized. PRE-CARDIAC CATHETERIZATION LABORATORY RESULTS: Hemoglobin and hematocrit of 12.8 and 38 with a platelet count of 238,000. BUN of 6, creatinine 0.9. Sodium 136, potassium 3.8, chloride 104, bicarb 24. INR 1.2, troponin 0.089. EQUIPMENT UTILIZED: 1. Radial artery sheath, a 6-[place] Glidesheath Slender. 2. Diagnostic coronary catheter was a 5-[place] TIG-4 curve catheter. 3. Diagnostic guidewire was a 260 length [place] curve guidewire. 4. Left heart catheterization catheter was a 5-[place] PIG short radial catheter. 5. The closure device utilized was a regular length Vasc Band by [employer]. MEDICATIONS GIVEN DURING THE PROCEDURE: The patient received a radial artery cocktail of 300 mcg of nitroglycerin and 3 mg of verapamil. Of note, the patient was already on a therapeutic heparin drip. The patient received 0.5 mg of Versed in the director of labor relations. DESCRIPTION OF PROCEDURE: The patient was brought to the cardiovascular laboratory where a formal time-out was performed. He was prepped and draped in a sterile fashion, and under ultrasound guidance, the right radial artery was cannulated and a sheath was placed. Coronary arteriography was performed followed by left heart catheterization. Following this, the catheter and sheath were removed and hemostasis was obtained with a Vasc Band. The reverse Barbeau was found to be a B. The total contrast used was 45 cc of Omnipaque dye. The radiation exposure included 3.9 minutes of fluoro time. The air kerma radiation was 606 milligray. The DAP radiation was 3666 microgray per meter squared. RESULTS: HEMODYNAMIC DATA: Left heart catheterization - central aortic pressure recorded at 127/71 with a mean of 96. Left ventricular pressure was 126 over left ventricular end-diastolic pressure of 10. CORONARY ARTERIOGRAPHY: A. Left coronary artery: 1. Left main - widely patent with no significant narrowing noted. 2. Left anterior descending artery. The mid portion of left anterior descending artery had a slightly eccentric 35% narrowing seen. The left anterior descending artery supplied a high first diagonal branch, which bifurcated the ostium of that vessel, had a 30% narrowing. This was followed by multiple small caliber diagonal branches. As the continuation, the LAD extended toward the apical region, but not onto the inferoapical or inferior wall. There were no other significant luminal reductions seen. 3. Circumflex artery - a nondominant vessel supplying a thin first, second, and third obtuse marginal branch followed by a more moderate sized, low lying obtuse marginal branch. There was no significant obstruction seen throughout the course. B. Right coronary artery - a dominant vessel with supplying several acute marginal branches. A long posterior descending artery, which traversed to the apical region and onto the distal anterior apical wall with continuation supplying multiple posterior left ventricular branches. The very proximal portion of the artery had a 20% narrowing noted followed in the mid segment on a bend area in the artery of a 35% narrowing seen. OVERALL ASSESSMENT: [id number] coronary artery disease involving the mid LAD and the proximal and mid right coronary artery with no hemodynamically significant lesions identified on coronary arteriography. Normal left ventricular end- diastolic pressure was noted. This information was shared with Dr. Holden Ho, the landscaper involved with the case in the hospital as well as with the hospitalist, Dr. Annika Francis. They will utilize this in further management and recommendations for the patient. A wound check will be set up for the patient next week with my partner, Dr. Mayes. [id number]/[facility] #: [id number] MTDD
--- NOTE | 2019-08-14 12:10 | PN ---
Subjective Date of Service: 08/14/19 Interval History: Pt feels well. Denied CP or abd pain Objective Active Medications: Acetaminophen (Tylenol Tab*) 650 mg PO Q4H PRN PRN Reason: PAIN-MILD/TEMP >/= 100.4 Amlodipine Besylate (Norvasc Tab*) 5 mg PO DAILY [facility] Last Admin: 08/14/19 07:52 Dose: 5 mg Atorvastatin Calcium (Lipitor*) 20 mg PO 2100 [facility] Heparin Sodium (Porcine) (Heparin Vial(*)) 0 units IV .PER PROTOCOL [facility] Last Admin: 08/14/19 02:33 Dose: 2,000 units Sodium Chloride (Ns 0.9% 1000 Ml) 1,000 mls @ 100 mls/hr IV .per rate [facility] Stop: 08/14/19 12:29 Metoprolol Tartrate (Lopressor Tab*) 12.5 mg PO Q12HR [facility] Last Admin: 08/14/19 07:52 Dose: 12.5 mg Morphine Sulfate (Morphine Inj (Syringe))*) 2 mg IV Q2H PRN PRN Reason: PAIN - SEVERE Nicotine Polacrilex (Nicotine Lozenge Mini) 4 mg MT Q2H PRN PRN Reason: CRAVING Pantoprazole Sodium (Protonix Tab*) 40 mg PO DAILY [facility] Last Admin: 08/14/19 07:53 Dose: 40 mg Pharmacy Consult (Maurice Per Pharmacy*) 1 note FOLLOW UP .ZOSYN PER PHARMACY [facility] Vital Signs - 8 hr 08/14/19 08/14/19 08/14/19 07:58 08:00 08:03 Pulse Rate 72 74 73 Respiratory 24 29 32 Rate Blood Pressure 129/82 133/86 (mmHg) O2 Sat by Pulse 94 94 93 Oximetry 08/14/19 08/14/19 08/14/19 09:14 09:15 09:30 Pulse Rate 75 67 Respiratory 17 22 32 Rate Blood Pressure 123/80 119/80 (mmHg) O2 Sat by Pulse 93 94 Oximetry 08/14/19 08/14/19 08/14/19 09:45 10:00 10:15 Pulse Rate 60 69 78 Respiratory 27 31 28 Rate Blood Pressure 128/79 120/81 145/91 (mmHg) O2 Sat by Pulse 94 94 93 Oximetry Oxygen Devices in Use Now: None Appearance: 49 yo M in nAD, aAOx3 Eyes: No Scleral Icterus, PERRLA Ears/Nose/Mouth/Throat: NL Teeth, Lips, Gums, Mucous Membranes Moist Neck: NL Appearance and Movements; NL JVP, Trachea Midline Respiratory: Symmetrical Chest Expansion and Respiratory Effort, Clear to Auscultation Cardiovascular: NL Sounds; No Murmurs; No JVD, RRR Abdominal: - - mild tenderness in RUQ, no rebound, no guarding, BS+ Extremities: No Edema, No Clubbing, Cyanosis Skin: No Rash or Ulcers, No Nodules or Sclerosis Neurological: Alert and Oriented x 3, NL Muscle Strength and Tone Result Diagrams: 08/14/19 04:13 08/14/19 04:13 Additional Lab and Data: Lab Results 08/13/19 08/13/19 08/13/19 Range/Units 10:40 10:40 10:40 WBC 13.9 H (3.5-10.8) 10^3/uL RBC 4.98 (4.18-5.48) 10^6 /uL Hgb 13.7 L (14.0-18.0) g/dL Hct 41 L (42-52) % MCV 82 (80-94) fL MCH 28 (27-31) pg MCHC 33 (31-36) g/dL RDW 15 (10-15) % Plt Count 282 (150-450) 10^3/uL MPV 7.3 L (7.4-10.4) fL Neut % (Auto) 85.9 % Lymph % (Auto) 7.7 % [place] % (Auto) 5.6 % Eos % (Auto) 0.3 % Baso % (Auto) 0.5 % Absolute Neuts (auto) 11.9 H (1.5-7.7) 10^3/ul Absolute Lymphs (auto) 1.1 (1.0-4.8) 10^3/ul Absolute Monos (auto) 0.8 (0-0.8) 10^3/ul Absolute Eos (auto) 0.0 (0-0.6) 10^3/ul Absolute Basos (auto) 0.1 (0-0.2) 10^3/ul Absolute Nucleated RBC 0.0 10^3/ul Nucleated RBC % 0.0 INR (Anticoag Therapy) 1.24 H (0.82-1.09) Sodium 139 (135-145) mmol/L Potassium 3.9 (3.5-5.0) mmol/L Chloride 104 (101-111) mmol/L Carbon Dioxide 27 (22-32) mmol/L Anion Gap 8 (2-11) mmol/L BUN 8 (6-24) mg/dL Creatinine 0.97 (0.67-1.17) mg/dL Est GFR ( Amer) 98.7 (>60) Est GFR (Non-Af Amer) 81.6 (>60) BUN/Creatinine Ratio 8.2 (8-20) Glucose 105 H (70-100) mg/dL Calcium 9.6 (8.6-10.3) mg/dL Total Bilirubin 0.30 (0.2-1.0) mg/dL AST 14 (13-39) U/L ALT 16 (7-52) U/L Alkaline Phosphatase 109 H (34-104) U/L Troponin I 0.07 H* (<0.03) ng/mL Total Protein 7.6 (6.4-8.9) g/dL Albumin 4.8 (3.2-5.2) g/dL Globulin 2.8 (2-4) g/dL Albumin/Globulin Ratio 1.7 (1-3) Assess/Plan/Problems-Billing Assessment: 49 yo M with h/o smoking presented with CP and elevated troponin - Patient Problems (1) Chest pain Comment: resolved appreciate Dr. Ho's consult Cath shows nonobstructive CAD at 35% echo shows no wall motion abn and good EF Elevated trop likely due to myopericarditis as per cardiology (2) Right upper quadrant abdominal pain Comment: US shows possible cholecystitis with GB stones d/w DR. Nuno-ovidio NPO for surgery to eval Cont IVF, started zosyn LFT's WNL today (3) HTN (hypertension) Comment: started on Norvasc at admission controled (4) DVT (deep venous thrombosis) Comment: ambulation , low risk
--- NOTE | 2019-08-14 15:29 | PN ---
Progress Note - Progress Note Date of Service: 08/14/19 Note: Brief Surgery Note (full consult dictated): 49 yo male w/ acute calculous cholecystitis, worked up for cardio etiology, but appears to be gallbladder, consistent w/ hx, PE, and workup, incl US. Improved significantly this a.m. Has only had one dose thus far of abx (Zosyn). Discussed w/ Dr. Nuno. Patient will need cholecystectomy. Timing will depend on multiple factors, but sometime soon. Dr. Nuno to see and make final plan. Until then, limited diet (low fat) and cont IV abx.
[2019-08-14] MEDS: ZOSYN 3.375 GM Q8H per EXTENDED INFUSION IVPB SCH ×2 (16:45)
[2019-08-14] MEDS ORDERED: Atorvastatin* 20 MG TAB PO SCH (21:00)
[2019-08-15] MEDS: ZOSYN 3.375 GM Q8H per EXTENDED INFUSION IVPB SCH ×4 (00:20→09:03)
--- NOTE | 2019-08-15 01:36 | CONS ---
CC: Dr. Zechariah Vega at [facility] * SURGICAL CONSULTATION REPORT: DATE OF CONSULT: 08/14/19 ATTENDING SURGEON: Dr. Miky Nuno. CHIEF COMPLAINT: Gallstones. HISTORY OF PRESENT ILLNESS: This is a 49-year-old, generally healthy male who was awakened from sleep the evening of 08/12/19 with substernal chest pain. He had been in his usual state of health during the day and did not have any symptoms prior to going to bed. He described pain in the lower central chest area with possibly a bit of radiation into the upper abdomen and right upper quadrant. He denies nausea, vomiting, fever, chills, and states that his last normal bowel movement had been on 08/13/19 (he states that his stools are always loose). Pain persisted through the day and he presented to the ED and was admitted with the diagnosis of unstable angina. He did not note any associated change in color of his urine or stool. He had a similar episode about 1 month ago associated with vomiting. That episode resolved within 3 hours. There is no known family history of gallbladder disease. His workup included multiple EKGs, mild troponin elevation. A coronary catheterization was performed this morning, which showed [id number] coronary artery disease. An ultrasound was also performed showing gallstones as well as sludge , gallbladder wall thickening (up to 9 mm) and a normal common bile duct. His white blood cell count was mildly elevated on admission and slightly decreased this morning. He was initiated on IV Zosyn this morning, but has only received 1 dose thus far. PAST MEDICAL HISTORY: He is an active smoker, though has decreased in recent years. No other significant past or active medical problems. PAST SURGICAL HISTORY: No prior surgeries. MEDICATIONS: He takes no medications at home. Currently in the hospital, he is receiving IV Zosyn. He is on a heparin drip. He is also receiving oral metoprolol, amlodipine, and aspirin. DRUG ALLERGIES: IBUPROFEN and NAPROSYN (both cause rash and total body itching) . FAMILY HISTORY: Negative for anesthesia problems, bleeding or clotting disorders. SOCIAL HISTORY: The patient is . 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 He is a smoker of less than 10 cigarettes per day. He denies use of alcohol or recreational drugs. REVIEW OF SYSTEMS: General: As per the HPI. No additions. HEENT: No problems reported. Cardiovascular: Generally has good exercise tolerance with his usual physical work. Respiratory: Smoking distress noted. Chronic cough with shortness of breath. GI: As above per HPI. He underwent colonoscopy around age 48 with finding of benign polyps and recommendation for 5-year followup without any interval symptoms of significance. : He denies dysuria , hematuria, or increased frequency. Endocrine: No diabetes or thyroid dysfunction. PHYSICAL EXAM: Height 5 feet 11 inches, weight 156 pounds, temperature 99.1, blood pressure 145/91, pulse 77, respirations most recently ranging from 28 to 32. General: Well-nourished, well-developed male in no acute distress. He appears comfortable. Skin: Warm and dry. No suspicious rashes or lesions. HEENT: Pupils equal and round, reactive. EOMs intact. No conjunctival pallor or scleral icterus. Oropharynx: Mucous membranes are dry. No intraoral lesions. Neck: No lymphadenopathy or thyromegaly. Lungs: Clear to auscultation. No wheezes. Heart: Regular rate and rhythm. No murmur noted. Abdomen: Bowel sounds present. Flat, nondistended, soft with [id number] right upper quadrant tenderness, though an equivocal Quintero sign. The remainder of the abdomen is soft, nontender and without palpable masses or organomegaly. No palpable inguinal hernias. Genitalia and Rectal: Not done. Back: No spinous process or CVA tenderness. Extremities: No edema. Neurological: Grossly intact. DIAGNOSTIC STUDIES/LAB DATA: Initial white blood cell count 13,900, repeat this morning 12.2; hemoglobin 12.8. His liver function tests are normal. Troponin was mildly elevated at 0.14. Ultrasound of the gallbladder shows gallstones as well as sludge, gallbladder wall thickening, and a normal common bile duct. IMPRESSION: Likely acute calculous cholecystitis, improving. PLAN: Case was discussed with Dr. Nuno who will also see and examine the patient. For the time being, we would continue IV antibiotics and keep diet conservative (low fat). He will likely need to undergo cholecystectomy, though timing will be discussed with Dr. Nuno, but there is no immediate urgency. This is all pending final medical and cardiac clearance. The patient understands the indications for gallbladder surgery and would like to proceed once a plan is finalized. JOSÉ MIGUEL [place]OMEZ, [place] [id number]/[facility] #: [id number] [facility] HOSPITALSAriane
[2019-08-15 06:09] LABS: Hematocrit 36 % (42-52); Hemoglobin 12.1 g/dL (14.0-18.0); Mean Corpuscular HGB Conc 34 g/dL (31-36); Mean Corpuscular Hemoglobin 28 pg (27-31); Mean Corpuscular Volume 82 fL (80-94); Mean Platelet Volume 7.1 fL (7.4-10.4); Platelet Count 206 10^3/uL (150-450); Red Blood Count 4.35 10^6 /uL (4.18-5.48); Red Cell Distribution Width 15 % (10-15)
[2019-08-15 06:25] LABS: Albumin 3.6 g/dL (3.2-5.2); Albumin/Globulin Ratio 1.4 (1-3); BUN/Creatinine Ratio 9.6 (8-20); Calcium 8.5 mg/dL (8.6-10.3); EGFR African American 91.1 (>60); EGFR Non-African American 75.3 (>60); Globulin 2.6 g/dL (2-4); Potassium 3.9 mmol/L (3.5-5.0); Total Bilirubin 0.6 mg/dL (0.2-1.0); Total Protein 6.2 g/dL (6.4-8.9)
--- NOTE | 2019-08-15 08:18 | PN ---
Subjective Date of Service: 08/15/19 Interval History: Mr. Gupta reports that he is feeling well and is eager for discharge to home. Dr Nuno has spoken with the patient at length about the recommendation to consider staying till Saturday for cholecystectomy. Patient prefers to be discharged and to return for outpatient surgery. Dr Nuno states that this is not unreasonable. Plan for 1 week antibiotics and follow up with Dr Nuno on Saturday. Objective Active Medications: Acetaminophen (Tylenol Tab*) 650 mg PO Q4H PRN Amlodipine Besylate (Norvasc Tab*) 5 mg PO DAILY [facility] Atorvastatin Calcium (Lipitor*) 20 mg PO 2100 [facility] Heparin Sodium (Porcine) (Heparin Vial(*)) 0 units IV .PER PROTOCOL [facility] Sodium Chloride (Ns 0.9% 1000 Ml) 1,000 mls @ 75 mls/hr IV PER RATE [facility] Piperacillin Sod/Tazobactam (Sod 3.375 gm/ Sodium Chloride) 100 mls @ 25 mls/ hr IVPB Q8H [facility] Metoprolol Tartrate (Lopressor Tab*) 12.5 mg PO Q12HR [facility] Morphine Sulfate (Morphine Inj (Syringe))*) 2 mg IV Q2H PRN Nicotine Polacrilex (Nicotine Lozenge Mini) 4 mg MT Q2H PRN Pantoprazole Sodium (Protonix Tab*) 40 mg PO DAILY [facility] Pharmacy Consult (Zosyn Per Pharmacy*) 1 note FOLLOW UP .ZOSYN PER PHARMACY [facility] Vital Signs: Temp Pulse Resp BP Pulse Ox 98.3 F 79 20 111/67 94 08/15/19 03:12 08/15/19 03:12 08/15/19 03:12 08/15/19 03:12 08/15/19 03:12 Oxygen Devices in Use Now: None Appearance: Male sitting up in bed in NAD Eyes: No Scleral Icterus Ears/Nose/Mouth/Throat: Mucous Membranes Moist Neck: Trachea Midline Respiratory: Symmetrical Chest Expansion and Respiratory Effort, Clear to Auscultation Cardiovascular: NL Sounds; No Murmurs; No JVD, No Edema Abdominal: NL Sounds; No Tenderness; No Distention Extremities: No Edema Skin: No Rash or Ulcers Neurological: Alert and Oriented x 3, NL Muscle Strength and Tone Nutrition: Taking PO's Result Diagrams: 08/15/19 05:57 01/18/20 05:57 Additional Lab and Data: . Assess/Plan/Problems-Billing Assessment: Mr. Gupta is a 49 yo M with h/o smoking presented with CP and elevated troponin, now s/p cath with finding of mild CAD with no stent placement. Subsequently found to have cholecystitis. - Patient Problems (1) Cholecystitis Comment: - Consult from Dr Nuno appreciated. Plan for one week antibiotics, outpatient follow up - Patient needs cholecystectomy but is not urgent (2) Chest pain Comment: - Resolved - Appreciate Dr. Ho's consult, elevated trop likely due to myopericarditis - Cath shows nonobstructive CAD at 35%, echo shows no wall motion abn and good EF (3) HTN (hypertension) Comment: - SBP 110-140s - Started on amlodipine at admission, but SBP has been well controlled outpatient and while here. Plan to stop. (4) DVT prophylaxis Priority: High (5) Full code status Comment: Status and Disposition: Inpatient. Discharge to home.
[2019-08-15] MEDS: Metoprolol Tartrate TAB* 25 MG PO SCH (09:04)
[2019-08-15] MEDS: Pantoprazole TAB * 40 MG TAB PO SCH (09:04)
[2019-08-15] MEDS: amLODIPine TAB* 5 MG PO SCH (09:04)
[2019-08-15 10:00] LABS: Troponin I 0.04 ng/mL (<0.03)
[2019-08-15 11:12] VITALS: BP 115/67
--- NOTE | 2019-08-15 13:11 | PN ---
CC: Primary Care Doctor; [facility] PROGRESS NOTE: DATE OF VISIT: 08/15/19 HISTORY: I became aware of Mr. Gupta yesterday, he is a 49-year-old gentleman diagnosed more recen tly with concern for acute cholecystitis, who had presented to our hospital on 08/13/19 with upper ab dominal pain and chest pain. The patient was noted to have elevated troponins and underwent cardiac evaluation, which included cardiac catheterization. Mild to moderate coronary artery disease involvi ng mid LAD was noted, but no significant lesions were found. It was at that point that our service w as consulted. The patient was started on antibiotics and was felt to be a candidate for laparoscopic cholecystectomy provided he had cardiology clearance. Recommendation was for troponins to settle do wn and they were elevated up until this morning. The patient, however, is feeling better with antibiotics and is interested in going home. Today, the patient states he denies any nausea. He does continue to have upper abdominal pain that i s controlled with pain medications. He is passing flatus and his appetite is improved. PHYSICAL EXAMINATION: He is afebrile. Vital signs are stable. He is alert and oriented x3, in no a pparent distress. He is nonjaundiced. Abdomen is soft, tender in the right upper quadrant with nega tive Quintero sign. No hernias noted. Extremities within normal limits. LABS REVIEWED: White count is 10. Troponin is finally settling down at 0.04. Chemistry panel shows normal T-bili at 0.6. Ultrasound reviewed. IMPRESSION: Acute cholecystitis 3 days into this disease and the patient is improving with antibioti cs and would prefer to go home. RECOMMENDATIONS: My recommendation is for continued admission with surgical intervention this week. I outlined the details of the procedure. The patient states that he would prefer to go home, as I d iscussed the alternatives of antibiotics and watchful waiting and follow up closely in my office. Th e patient preferred this option. I discussed with him that he can worsen with antibiotics alone and may return back to the emergency room where we would review his chart again and look towards some ivanna atment options. The patient is aware of this. He was given our phone number and he will contact our offices. I would like to see him on Saturday. He will go home on 1 week of antibiotics as per the ospitalist service. I will see him and plan for an interval lap cholecystectomy. After this episode , the patient understands that this somewhat delay in operative treatment may lead to worsening disea se course and will be discharged by the hospitalist service. [id number]/[facility] #: [id number]
--- NOTE | 2019-08-15 17:16 | DS ---
DISCHARGE SUMMARY: DATE OF ADMISSION: 08/13/19 DATE OF DISCHARGE: 08/15/19 ATTENDING PHYSICIAN: Dr. Troncoso* (DICTATED BY PAULA WILDER NP) PRIMARY CARE PHYSICIAN: Dr. Vega. PRIMARY DIAGNOSES: 1. Cholecystitis. 2. Chest pain with nonocclusive coronary artery disease. MEDICATIONS AT THE TIME OF DISCHARGE: 1. Ciprofloxacin 500 mg p.o. b.i.d. times a week. 2. Flagyl 500 mg p.o. t.i.d. times a week. HOSPITAL COURSE: Mr. Gupta is a 49-year-old male with no known past medical history presented to the hospital on 08/13/19 with concern for chest pain and right upper quadrant pain. Please see dictated H and P from Dr. Francis for complete details. In brief, the patient had an episode of indigestion with discomfort rating 8/10 in intensity that had woken him from sleep. In the emergency room, he had labs, which showed a troponin of 0.07. He had a chest x- ray that showed no cardiopulmonary abnormality. His EKG showed a sinus bradycardia with no evidence of ischemia. He had a gallbladder ultrasound, which shows "gallbladder wall thickening with gallstone, sludge and pericholecystic fluid noted and obstructed gallbladder with cholecystitis should be considered. No biliary duct dilatation is noted." Because of the patient's elevated troponin, there was concern that the patient was having acute coronary syndrome. He was seen in consultation by Dr. Ho and this resulted in transthoracic echocardiogram and cardiac catheterization. The echocardiogram showed an intact ejection fraction with no PFO, wall motion or valvular abnormalities. His cardiac catheterization showed nonobstructive coronary artery disease in the left anterior descending artery, which was not stented. I refer you to the consultation from Dr. Ho for complete details, but it was considered likely that the patient had myocarditis related to his cholecystitis. He had additional workup with lipid profile showing triglycerides of 68 with the cholesterol of 111, LDL of 58 and HDL of 39.6. His blood pressure has been well controlled, systolic running one-teens. He was on amlodipine initially with blood pressure running 169/102. Based on the nonobstructive disease seen on cath, it was suspected that his symptoms were likely more related to cholecystitis. He was seen in consultation by Dr. Nuno and his team. Their recommendation to the patient was that he consider staying until Saturday for surgery; however, the patient states that he preferred to go home and return for outpatient intervention. Dr. Nuno states this is not unreasonable. The patient is to be discharged to home on a full week of antibiotics and close followup with Dr. Nuno on Saturday. Mr. Gupta is medically stable for discharge to home. I reviewed with him at length that it is essential that he return immediately to the hospital if he has abdominal pain, fever or other concerning symptoms. DISPOSITION: Home. DIET: Low fat. ACTIVITY: The patient to have light activity, no heavy lifting until at least followup with Dr. Nuno. FOLLOWUP PLANS: The patient is to follow up with Dr. Nuno on Saturday of this week and of course return to the hospital with any concerning symptoms. TIME SPENT: Approximately 60 minutes was spent on the discharge of this patient , more than half time spent with the patient at the bedside reviewing the events leading up to this hospitalization, performing the physical examination, and reviewing my plan of care. PAULA WILDER NP [id number]/[facility] #: [id number] ALFA
== END 2019-08-15 14:25 | disposition home or self-care (01) ==
LOC: ED 10:16 → MEDTELE 12:32
PROVIDERS: ADMIT Internal Medicine; ATTEND Internal Medicine
PROC: 4A023N7 Measurement of Cardiac Sampling and Pressure, Left Heart, Percutaneous Approach (ICD-10-PCS; 2019-08-14)
PROC: B2111ZZ Fluoroscopy of Multiple Coronary Arteries using Low Osmolar Contrast (ICD-10-PCS; principal; 2019-08-14 08:00)
DX: K80.00 Calculus of gallbladder with acute cholecystitis without obstruction (principal); F17.210 Nicotine dependence, cigarettes, uncomplicated; I10 Essential (primary) hypertension; J44.9 Chronic obstructive pulmonary disease, unspecified; I51.4 Myocarditis, unspecified; I25.10 Atherosclerotic heart disease of native coronary artery without angina pectoris; R00.1 Bradycardia, unspecified; Z28.21 Immunization not carried out because of patient refusal; Z88.6 Allergy status to analgesic agent; Z88.1 Allergy status to other antibiotic agents
CPT/HCPCS: 36415; 71045; 76705; 80048; 80053; 80061; 80076; 82550; 82553; 83690; 84484; 85025; 85027; 85347; 85610; 85652; 85730; 86140; 93005; 93306; 93458; 99156; 99157; 99283; A9270-GY; C8929; J1644; J2250; J2543; J3010

== ENCOUNTER 2019-09-30 05:46 | Day surgery (SDC) | payer BC ==
--- NOTE | 2019-09-24 14:40 | HP ---
AMENDED REPORT NOW INCLUDES DESIGNATED COSIGNER CC: Dr. Vega at [facility] * ADMISSION HISTORY AND PHYSICAL: DATE OF ADMISSION/SURGERY: 09/30/19 ATTENDING SURGEON: Dr. Miky Nuno * (dictated by YENY Ruiz). CHIEF COMPLAINT: Symptomatic cholelithiasis. HISTORY OF PRESENT ILLNESS: This is a 49-year-old male who was recently hospitalized for lower chest pain in July. A surgical consult was done at that time. He underwent cardiac workup for a mildly elevated troponin. He did undergo cardiac catheterization, which revealed nonocclusive coronary disease. Right upper quadrant ultrasound did show gallstones and sludge as well as a thickened gallbladder wall (up to 9 mm) consistent with acute cholecystitis. He was also seen during that visit by Dr. Nuno and then subsequently as an outpatient. He completed a course of oral antibiotics with resolution of his symptoms. He had had 1 prior episode about 3 months ago associated with some vomiting. Dr. Nuno has discussed with him the indications for cholecystectomy , the risks, benefits and alternatives. He would like to proceed as scheduled with robotic cholecystectomy. He was seen in followup by Dr. Mayes who felt that there were no contraindications to proceeding with surgery (see separate note). PAST MEDICAL HISTORY: He has no significant past medical history other than tobacco use. He was being treated for hyperlipidemia and hypertension upon discharge in July, but completed the initial prescriptions after which there were no refills. He did not have primary care followup and he was encouraged strongly today to call Dr. Vega to arrange for that. PAST SURGICAL HISTORY: Tonsillectomy, dental extractions; no complications reported. CURRENT MEDICATIONS: None other than nicotine lozenge which he is using up to 20 per day. DRUG ALLERGIES: IBUPROFEN and NAPROXEN (both caused rash and itching) (the patient did tolerate aspirin therapy during his hospital stay without side effects). FAMILY HISTORY: Negative for gallbladder disease and is also negative for anesthesia problems, bleeding or clotting disorders. SOCIAL HISTORY: The patient is . 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 He is down to less than or equal to 10 cigarettes per day and is attempting to gradually reduce and ultimately quit. He denies use of alcohol or recreational drugs. REVIEW OF SYSTEMS: General: No recent constitutional symptoms or acute illnesses other than described in the HPI. His weight has been stable. HEENT: He is edentulous. He uses full upper denture only. No other problems reported. Cardiovascular: See above. No additions. Respiratory: No history of asthma or chronic cough. He is an active smoker. He was attempting to cut down and quit. GI: As above per HPI. He denies any episodes of dark urine or light colored stool. He has undergone colonoscopy on an every 5 year basis, the most recent being 2 years ago with removal of benign polyps and no interval symptoms of concern. : No problems reported. Endocrine: No diabetes or thyroid dysfunction. PHYSICAL EXAMINATION GENERAL: Well-nourished, well-developed male, in no acute distress. VITAL SIGNS: Height 5 feet 11 inches, weight 155 pounds. Temperature 98.1, blood pressure 136/84, pulse 76. HEENT: Pupils are equal and round, reactive. EOMs intact. No conjunctival pallor or scleral icterus. Oropharynx: Edentulous with full upper denture. No intraoral lesions. NECK: No lymphadenopathy or thyromegaly. LUNGS: Clear to auscultation. No rales or wheezes. Breath sounds are distant. HEART: Regular rate and rhythm. No murmur appreciated. ABDOMEN: Soft, nontender to palpation. No palpable masses or organomegaly. No tenderness in the right upper quadrant. GENITALIA: Not done. RECTAL: Not done. BACK: No spinous process or CVA tenderness. EXTREMITIES: No edema. NEUROLOGICAL: Grossly intact. SKIN: Warm and dry. No suspicious rashes or lesions noted. IMPRESSION: Symptomatic cholelithiasis with recent acute calculous cholecystitis. PLAN: Robotic cholecystectomy. YENY RUIZ [id number]/[facility] #: [id number] ALFA
[~2019-09-30 05:46] MED LIST: Buffered Lidocaine 1% SYRIN* 1 ML/SYRINGE INTRADERM ONE
[2019-09-30] MEDS ORDERED: fentaNYL* 50 MCG/ML 2 ML VIAL (100 MCG VIAL) IV PRN (05:53)
[2019-09-30] MEDS ORDERED: PROCHLORPERAZINE INJ 5 MG/ML 2 ML VIAL IV PRN (05:53)
[2019-09-30] MEDS ORDERED: HYDROmorphone INJ1* 1 MG/ML SYRINGE IV PRN (05:53)
[2019-09-30] MEDS ORDERED: Naloxone* 0.4 MG/ML 1 ML VIAL IV PRN (05:53)
[2019-09-30] MEDS ORDERED: DiMENhydriNATE IV* 50 MG/ML VIAL IV PUSH PRN (05:53)
[2019-09-30] MEDS ORDERED: Ondansetron ODT TAB* 4 MG PO ONE (06:00)
[2019-09-30] MEDS ORDERED: Famotidine IV* 10 MG/ML 2 ML (20 mg) IV ONE (06:00)
[2019-09-30] MEDS ORDERED: Lactated Ringers 1000 ML Bag* 1,000 ML IV SCH (06:00)
[2019-09-30] MEDS ORDERED: Dexamethasone TAB* 4 MG PO ONE (06:00)
[2019-09-30] MEDS ORDERED: ceFAZolin 2 GM in NS PREMIX(*) 2 GM/100 ML BAG IVPB ONE (06:10)
[2019-09-30] MEDS ORDERED: Ondansetron ODT TAB* 4 MG ONE (06:10)
[2019-09-30] MEDS ORDERED: Famotidine IV* 10 MG/ML 2 ML (20 mg) ONE (06:10)
[2019-09-30] MEDS ORDERED: Dexamethasone IV* 4 MG/ML 1 ML (4 MG) ONE (06:10)
[2019-09-30] MEDS ORDERED: Dexamethasone TAB* 4 MG ONE (06:34)
[2019-09-30] MEDS ORDERED: Bupivacaine 0.5% W/EPI SDV* 30 ML VIAL ONE (07:09)
[2019-09-30] MEDS ORDERED: Rocuronium* 10 MG/ML VIAL ONE (07:21)
[2019-09-30] MEDS ORDERED: fentaNYL* 50 MCG/ML 2 ML VIAL (100 MCG VIAL) ONE (07:21)
[2019-09-30] MEDS ORDERED: Midazolam* 1 MG/ML 5 ML VIAL (5 MG) ONE (07:22)
[2019-09-30] MEDS ORDERED: KETAMINE HCL* 50 MG/ML 10 ML VIAL ONE (07:22)
[2019-09-30] MEDS ORDERED: Propofol* 10 MG/ML 20 ML BTL ONE (07:50)
[2019-09-30] MEDS ORDERED: Lidocaine 2% PF * 5 ML VIAL ONE (07:50)
[2019-09-30] MEDS ORDERED: Sugammadex * 200 MG/2 ML VIAL IV PUSH ONE (07:50)
[2019-09-30] MEDS ORDERED: EPHEDrine (Pressors)* 50 MG/ML VIAL ONE (07:51)
[2019-09-30] MEDS ORDERED: Acetaminophen IV 1GM/100ML * 100 ML ONE (07:55)
[2019-09-30] MEDS ORDERED: HYDROmorphone INJ1* 1 MG/ML SYRINGE ONE (07:57)
[2019-09-30] MEDS ORDERED: hydrALAZINE IV* 20 MG/ML VIAL ONE (09:37)
[2019-09-30] MEDS ORDERED: oxyCODONE TAB* 5 MG TAB ONE (10:03)
[2019-09-30] MEDS: oxyCODONE TAB* 5 MG TAB PO PRN ×2 (10:04→10:06)
[2019-09-30 10:32] VITALS: BP 131/89
--- NOTE | 2019-10-01 03:20 | OP ---
CC: Primary Care Doctor; [facility] OPERATIVE REPORT: DATE OF OPERATION: 09/30/19 DATE OF : 66 SURGEON: Miky Nuno MD [employer] ARCHITECT: MARIA E Loredo ANESTHESIOLOGIST: Dr. Palacio. ANESTHESIA: General anesthesia. PRE-OP DIAGNOSIS: Chronic cholecystitis. POST-OP DIAGNOSIS: Chronic cholecystitis. OPERATIVE PROCEDURE: Robotic cholecystectomy. BLOOD LOSS: Minimal. FLUIDS: Minimal crystalloid fluid given. SPECIMEN: Gallbladder. DRAINS: None. DESCRIPTION OF PROCEDURE: The patient was identified in the preoperative area. He was marked. Cons ent was signed. He was then taken to the operating room and placed on the operating table in supine position. Preoperative antibiotics were given. Sequential devices were placed on bilateral lower ex tremities. General anesthesia was induced. The patient's abdomen was prepped and draped in a standa rd surgical fashion. A time-out was performed. Folds in the umbilicus were elevated anteriorly and a Veress needle inserted into the abdominal cavit y, which was then allowed to insufflate to a pressure of 15 mmHg. Once this was inflated, an 8-mm ro botic trocar was then inserted at the left upper quadrant. Laparoscope was inserted through this and there was no evidence of injury from the trocar insertion or from the Veress needle. Three addition al 8-mm robotic trocars were inserted after marking off the planned anatomy and staying a good distan ce from this. The table was positioned to right side up, head up position. The robot was docked and I went to the console. The gallbladder was difficult to grasp at the fundus. There were no adhesions to the anterior aspect of the gallbladder but it was difficult to grasp and consistent with hydrops that was confirmed at t he end when we removed it from the abdomen. We were able to get some purchase and hold this anterior ly. The infundibular region was then identified and with the help of Firefly, we could see the cysti c duct and common bile duct structures. The peritoneum of the lateral aspect of the gallbladder was taken with cautery and the medial aspect was similarly taken. The cystic artery was isolated and it was doubly clipped and ligated. This all owed us to get behind the gallbladder in a better positioning and then isolated the cystic duct, whic h was also doubly clipped and ligated. The gallbladder was then removed from the liver bed and place d in an endoscopic retrieval bag. Review of the cystic duct stump and cystic artery stump showed no bile and no bleeding. The Firefly again was utilized and showed no evidence of bile leakage. The table was positioned back to neutral a nd then I went back to the bedside after scrubbing and removed the gallbladder through the right uppe r quadrant port site after dilating this port with Quyen clamp. This was removed under direct vision and placing the camera within the abdomen and then we closed the fascia at this site with an 0 Vicry l suture using a Weck closure device. Abdomen was allowed to collapse. Trocars were removed and all 4 skin incisions were reapproximated with 4- 0 Monocryl subcuticular sutures followed by Steri-Strip s and sterile dressing. The patient tolerated the procedure well. [id number]/[facility] #: [id number]
== END 2019-09-30 10:56 | disposition home or self-care (01) ==
LOC: OR 05:46
PROVIDERS: ATTEND Surgery
DX: K80.10 Calculus of gallbladder with chronic cholecystitis without obstruction (principal); F17.210 Nicotine dependence, cigarettes, uncomplicated
CPT/HCPCS: 47562; S2900; 88304; A9270-GY; J0360; J0690; J1100; J1170; J2250; J2704; J3010; J8540